=== PATIENT | female | born 1980 | race Caucasian/White ===

== ENCOUNTER 2017-09-05 07:50 | Day surgery (SDC) | payer OTHER ==
[2017-08-29 10:56] VITALS: BMI 28.3
[2017-09-05] MEDS ORDERED: PROPOFOL 20 ML ONE ×2 (08:05)
[2017-09-05 08:28] VITALS: TEMP 98.2
[2017-09-05] MEDS ORDERED: LIDOCAINE HCL/PF 2% SDV 5ML VIAL ONE (09:37)
[2017-09-05 10:48] VITALS: BP 100/60; PULSE 79
== END 2017-09-05 10:35 | disposition home or self-care (01) ==
LOC: FASU-ENDO 07:50
PROVIDERS: ATTEND Internal Medicine Gastroenterology
PROC: 0DJD8ZZ Inspection of Lower Intestinal Tract, Via Natural or Artificial Opening Endoscopic (ICD-10-PCS; principal; 2017-09-05 09:39)
DX: K62.5 Hemorrhage of anus and rectum (principal); K64.8 Other hemorrhoids
CPT/HCPCS: 84703

== ENCOUNTER 2022-01-18 08:03 | Day surgery (SDC) | payer BC ==
[2022-01-16 15:37] VITALS: BMI 32.8
[2022-01-18] MEDS ORDERED: MIDAZOLAM HCL 2 MG/2 ML SINGLE DOSE VIAL ONE (09:20)
[2022-01-18] MEDS ORDERED: PROPOFOL 40 ML ONE (09:36)
[2022-01-18 10:41] VITALS: TEMP 97.1
[2022-01-18 10:42] VITALS: BP 116/50; PULSE 82; RESP 19
== END 2022-01-18 10:45 | disposition home or self-care (01) ==
LOC: FASU-ENDO 08:03
PROVIDERS: ATTEND Internal Medicine Gastroenterology
PROC: 0DB68ZX Excision of Stomach, Via Natural or Artificial Opening Endoscopic, Diagnostic (ICD-10-PCS; 2022-01-18)
PROC: 0D748DZ Dilation of Esophagogastric Junction with Intraluminal Device, Via Natural or Artificial Opening Endoscopic (ICD-10-PCS; 2022-01-18)
PROC: 0DB98ZX Excision of Duodenum, Via Natural or Artificial Opening Endoscopic, Diagnostic (ICD-10-PCS; principal; 2022-01-18 09:32)
DX: K29.50 Unspecified chronic gastritis without bleeding (principal); K22.10 Ulcer of esophagus without bleeding; K44.9 Diaphragmatic hernia without obstruction or gangrene; R13.10 Dysphagia, unspecified
CPT/HCPCS: 81025; 88305-TC; 88342-TC